=== PATIENT | female | born 1990 | race Caucasian/White ===

== ENCOUNTER 2017-04-06 15:37 | Emergency (ER) | payer BC, MEDICAID ==
[2017-04-06 16:16] VITALS: BMI 25.8
--- NOTE | 2017-04-06 17:30 | C.PDOC ---
REFERRED BY DR RJ MESA FOR HYPEREMESIS. PS WORSENING SX X 3-4 WEEKS. NO IMPROVE W REGLAN, COMPAZINE SUPPOSITORY, HERBAL ANTIEMETIC TX. PS IS HUNGRY AND WANTS TO EAT BUT IMMEDIATELY VOMITS EVEN W PO HYDRATION. DECREASED UO. NO ABD PAIN, VB, FEVER, DIARRHEA. EXAM MILD DIST NONTOXIC POOR TURGOR ABD NEG REMAINDER NEG (Iron,Carly) History Per: Patient History/Exam Limitations: no limitations Onset/Duration Of Symptoms: Days Current Symptoms Are (Timing): Still Present Severity: Moderate <Carly Perdue - Last Filed: 04/06/17 18:43> <Azalia Anna - Last Filed: 04/07/17 05:18> Time Seen by Provider: 04/06/17 17:08 Chief Complaint (Nursing): GI Problem Past Medical History Reviewed: Historical Data, Nursing Documentation, Vital Signs - Medical History PMH: No Chronic Diseases Other Surgeries: Hx of surgeries Family History: States: No Known Family Hx - Social History Hx Alcohol Use: No Hx Substance Use: No - Immunization History Hx Tetanus Toxoid Vaccination: No Hx Influenza Vaccination: Yes (2017) Hx Pneumococcal Vaccination: No <Carly Perdue - Last Filed: 04/06/17 18:43> Vital Signs: Last Vital Signs Temp 98.5 F 04/06/17 22:36 Pulse 80 04/06/17 22:36 Resp 14 04/06/17 22:36 BP 120/80 04/06/17 22:36 Pulse Ox 99 04/06/17 22:36 Review Of Systems Except As Marked, All Systems Reviewed And Found Negative. Constitutional: Negative for: Fever, Chills Gastrointestinal: Positive for: Vomiting. Negative for: Abdominal Pain, Diarrhea <Carly Perdue - Last Filed: 04/06/17 18:43> Physical Exam - Physical Exam Appears: Non-toxic, Other (mild distress) Skin: Normal Color, Warm, Other (poor turgor) Head: Atraumatic, Normacephalic Eye(s): bilateral: Normal Inspection Gastrointestinal/Abdominal: Normal Exam, Soft, No Tenderness, No Distention, No Guarding, No Rebound Neurological/Psych: Oriented x3, Normal Speech, Normal Motor, Normal Sensation <Carly Perdue - Last Filed: 04/06/17 18:43> ED Course And Treatment - Laboratory Results Result Diagrams: 04/06/17 17:55 04/06/17 17:55 O2 Sat by Pulse Oximetry: 98 (RA) Pulse Ox Interpretation: Normal <Carly Perdue - Last Filed: 04/06/17 18:43> - Laboratory Results Result Diagrams: 04/06/17 17:55 04/06/17 17:55 <Azalia Anna - Last Filed: 04/07/17 05:18> Progress - Data Reviewed Data Reviewed: Lab, Old records <Carly Perdue - Last Filed: 04/06/17 18:43> <Azalia Anna - Last Filed: 04/07/17 05:18> - Re-Evaluation Re-evaluation Note: 04/06/17 17:25 D/W DR DE LA ROSA: PT FAILED RECTAL COMPAZINE, REGLAN, HERBAL ANTIEMETICS. UNABLE TO TOLERATE PO. REQUESTING IVF, PO TRIAL POSSIBLE ADMISSION IF FAIL OR ELECTROLYTE ABN. ADVISES REGLAN, NO ZODIRK. [phone] (Carly Perdue) Medical Decision Making <Carly Perdue - Last Filed: 04/06/17 18:43> <Azalia Anna - Last Filed: 04/07/17 05:18> Medical Decision Making: Plan: --Labs --UA --IV Fluids (Carly Perdue) Disposition Counseled Patient/Family Regarding: Studies Performed, Diagnosis - Disposition Disposition Time: 19:00 <Carly Perdue - Last Filed: 04/06/17 18:43> <Azalia Anna - Last Filed: 04/07/17 05:18> - Disposition Disposition: AGAINST MEDICAL ADVICE Condition: STABLE - Clinical Impression Clinical Impression: Hyperemesis gravidarum - Scribe Statement The provider has reviewed the documentation as recorded by the Scribe <Carly Perdue - Last Filed: 04/06/17 18:43> <Azalia Anna - Last Filed: 04/07/17 05:18> - Scribe Statement Aneesh Watkins (Carly Perdue) Provider Attestation: All medical record entries made by the Scribe were at my direction and personally dictated by me. I have reviewed the chart and agree that the record accurately reflects my personal performance of the history, physical exam, medical decision making, and the department course for this patient. I have also personally directed, reviewed, and agree with the discharge instructions and disposition. (Carly Perdue) Physician Patient Turnover Patient Signed Over To: Azalia Anna Handoff Comments: SASHA HULL, DISPO <Carly Perdue - Last Filed: 04/06/17 18:43>
[2017-04-06] MEDS ORDERED: Sodium Chloride 0.9% 2,000 ML ONE (17:47)
[2017-04-06 18:03] LABS: BASO # 0.1 K/uL (0.0-0.2); BASO % 0.5 % (0.0-2.0); EOS # 0.1 K/uL (0.0-0.7); EOS % 0.7 % (0.0-4.0); HEMOGLOBIN 12.2 g/dL (11.0-16.0); LYMPH # 2.9 K/uL (1.0-4.3); LYMPH % 19.6 % (20.0-40.0); MEAN CORPUSCULAR HEMOGLOBIN 28.8 pg (27.0-31.0); MEAN CORPUSCULAR HGB CONC 33.3 g/dL (33.0-37.0); MEAN PLATELET VOLUME 8.3 fL (7.2-11.7); MONO # 0.8 K/uL (0.0-0.8); MONO % 5.3 % (0.0-10.0); NEUT % 73.9 % (50.0-75.0); RBC 4.22 Mil/uL (3.80-5.20); RED CELL DISTRIBUTION WIDTH 13.1 % (11.5-14.5); WHITE BLOOD COUNT 14.9 K/uL (4.8-10.8)
[2017-04-06 18:09] LABS: MEAN CELL VOLUME 86.7 fL (81.0-99.0)
[2017-04-06 18:20] LABS: CALCIUM 9.1 mg/dl (8.6-10.4); GFR AFRICAN-AMERICAN > 60; GFR NON-AFRICAN AMERICAN > 60
[2017-04-06 18:29] LABS: BLOOD UREA NITROGEN 7 mg/dL (7-17)
[2017-04-06 18:32] LABS: SQUAMOUS EPITHIAL 1 /hpf (0-5); URINE BACTERIA OCC (<OCC); URINE BILIRUBIN NEGATIVE (NEGATIVE); URINE BLOOD NEGATIVE (NEGATIVE); URINE CLARITY Hazy (Clear); URINE COLOR Yellow (YELLOW); URINE GLUCOSE (UA) NORMAL (Normal); URINE LEUKOCYTE ESTERASE NEG Leu/uL (Negative); URINE NITRATE NEGATIVE (NEGATIVE); URINE PROTEIN NEGATIVE (NEGATIVE); URINE UROBILINOGEN NORMAL mg/dL (0.2-1.0)
[2017-04-06] MEDS ORDERED: Dextrose 5%/0.9% NS 1,000 ML IV SCH (21:00)
--- NOTE | 2017-04-06 21:06 | CP.PCM.HP ---
History of Present Illness - History of Present Illness History of Present Illness: cc: nausea vomitting 26 yo with nausea vomitting. 7 weeks confirmed FHT. failing outpatient management with PO reglan and compazine suppositories, pepcid. unable to tolerate liquids and solids. attempt to hydrate and PO challenge in ED failed. Present on Admission - Present on Admission Any Indicators Present on Admission: No Review of Systems - Constitutional Constitutional: Weakness. absent: As Per HPI, Anorexia, Chills, Daytime Sleepiness, Excessive Sweating, Fatigue, Fever, Frequent Falls, Headache, Increased Appetite, Lethargy, Malaise, Night Sweats, Snoring, Sleep Apnea, Weight Gain, Other - EENT Eyes: absent: Blurred Vision, Floaters Nose/Mouth/Throat: As Per HPI - Breasts Breasts: absent: Nipple Discharge - Cardiovascular Cardiovascular: Palpitations. absent: Chest Pain, Orthopnea - Respiratory Respiratory: absent: Dyspnea - Gastrointestinal Gastrointestinal: As Per HPI - Genitourinary Genitourinary: absent: Change in Urinary Stream, Difficulty Urinating, Dysuria - Reproductive: Female Reproductive:Female: As Per HPI Past Patient History - Past Medical History & Family History Past Medical History?: Yes - Past Social History Smoking Status: Never Smoked - PSYCHIATRIC Hx Substance Use: No - SURGICAL HISTORY Hx Surgeries: Yes (SEE COMMENT) Hx Section: Yes (x1(2010)) Meds Allergies/Adverse Reactions: Allergies Allergy/AdvReac Type Severity Reaction Status Date / Time No Known Allergies Allergy Verified 04/06/17 16:14 Physical Exam - Constitutional Appears: Non-toxic, No Acute Distress - Head Exam Head Exam: ATRAUMATIC, NORMOCEPHALIC - Eye Exam Eye Exam: PERRL - Cardiovascular Exam Cardiovascular Exam: REGULAR RHYTHM - GI/Abdominal Exam GI & Abdominal Exam: Normal Bowel Sounds. absent: Guarding, Tenderness - Back Exam Back exam: NORMAL INSPECTION Results - Vital Signs Recent Vital Signs: Last Vital Signs Temp 98.7 F 04/06/17 16:16 Pulse 90 04/06/17 16:16 Resp 18 04/06/17 16:16 BP 132/88 04/06/17 16:16 Pulse Ox 98 04/06/17 18:44 - Labs Result Diagrams: 04/06/17 17:55 04/06/17 17:55 Labs: Laboratory Results - last 24 hr 04/06/17 04/06/17 04/06/17 17:55 17:55 17:55 WBC 14.9 H RBC 4.22 Hgb 12.2 Hct 36.6 MCV 86.7 D MCH 28.8 MCHC 33.3 RDW 13.1 Plt Count 320 MPV 8.3 Neut % (Auto) 73.9 Lymph % (Auto) 19.6 L [place] % (Auto) 5.3 Eos % (Auto) 0.7 Baso % (Auto) 0.5 Neut # (Auto) 11.0 H Lymph # (Auto) 2.9 [place] # (Auto) 0.8 Eos # (Auto) 0.1 Baso # (Auto) 0.1 Sodium 132 Potassium 4.3 Chloride 98 Carbon Dioxide 24 Anion Gap 14 BUN 7 Creatinine 0.6 L Est GFR ( Amer) > 60 Est GFR (Non-Af Amer) > 60 Random Glucose 82 Calcium 9.1 Beta HCG, Quant 07266.00 Urine Color Yellow Urine Clarity Hazy Urine pH 6.0 Ur Specific [place] 1.020 Urine Protein Negative Urine Glucose (UA) Normal Urine Ketones Negative Urine Blood Negative Urine Nitrate Negative Urine Bilirubin Negative Urine Urobilinogen Normal Ur Leukocyte Esterase Neg Urine WBC (Auto) 1 Urine RBC (Auto) < 1 Ur Squamous Epith Cells 1 Urine Bacteria Occ H Assessment & Plan (1) Hyperemesis gravidarum Status: Acute - Assessment and Plan (Free Text) Plan: see orders, ADAT, iv reglan/pepcid scheduled, ivf ambulation as tolerated d/c when able to tolerate oral intake and on oral medications
[2017-04-06 22:37] VITALS: BP 120/80; PULSE 80; RESP 14; TEMP 98.5; O2SAT 99
== END 2017-04-06 22:06 | disposition left against medical advice (07) ==
LOC: C.ER 15:37 → UNDOADMOB 19:55 → C.9E 19:55 → C.3T 21:08 → C.9E 21:08 → C.3T 21:31 → C.9E 21:31 → UNDODISOB 22:06 → C.ER 22:06
DX: O21.0 Mild hyperemesis gravidarum (principal); Z3A.01 Less than 8 weeks gestation of pregnancy
CPT/HCPCS: 80048; 81001; 84702; 85025; 96374; 99283; J2765; J7040

== ENCOUNTER 2017-04-07 10:22 | Inpatient (IN) | payer BC ==
[2017-04-07 11:11] VITALS: BMI 26.6
[2017-04-07] MEDS ORDERED: Dextrose 5%/0.9% NS 1,000 ML IV ONE (13:15)
--- NOTE | 2017-04-07 18:49 | CP.PCM.HP ---
History of Present Illness - History of Present Illness History of Present Illness: n/v of 26 yo with nausea vomitting. 7 weeks confirmed FHT. failing outpatient management with PO reglan and compazine suppositories, pepcid. unable to tolerate liquids and solids. attempt to hydrate and PO challenge in ED failed. Present on Admission - Present on Admission Any Indicators Present on Admission: No Review of Systems - Constitutional Constitutional: absent: As Per HPI, Anorexia, Chills, Daytime Sleepiness, Excessive Sweating, Fatigue, Fever, Frequent Falls, Headache, Increased Appetite , Lethargy, Malaise, Night Sweats, Snoring, Sleep Apnea, Weakness, Other - EENT Eyes: absent: As Per HPI, Blind Spots, Blurred Vision, Change in Vision, Decreased Night Vision, Diplopia, Discharge, Dry Eye, Exophthalmos, Floaters, Irritation, Itchy Eyes, Loss of Peripheral Vision, Pain, Photophobia, Requires Corrective Lenses, Sees Flashes, Spots in Vision, Tunnel Vision, Other Visual Disturbances, Loss of Vision, Other Ears: absent: As Per HPI, Decreased Hearing, Ear Discharge, Ear Pain, Tinnitus, Abnormal Hearing, Disequilibrium, Dizziness, Other Nose/Mouth/Throat: absent: As Per HPI, Epistaxis, Nasal Congestion, Nasal Discharge, Nasal Obstruction, Nasal Trauma, Nose Pain, Post Nasal Drip, Sinus Pain, Sinus Pressure, Bleeding Gums, Change in Voice, Dental Pain, Dry Mouth, Dysphagia, Halitosis, Hoarsness, Lip Swelling, Mouth Lesions, Mouth Pain, Odynophagia, Sore Throat, Throat Swelling, Tongue Swelling, Facial Pain, Neck Pain, Neck Mass, Other - Cardiovascular Cardiovascular: absent: As Per HPI, Acrocyanosis, Chest Pain, Chest Pain at Rest , Chest Pain with Activity, Claudication, Diaphoresis, Dyspnea, Dyspnea on Exertion, Edema, Irregular Heart Rhythm, Pain Radiating to Arm/Neck/Jaw, Leg Edema, Leg Ulcers, Lightheadedness, Orthopnea, Palpitations, Paroxysmal Nocturnal Dyspnea, Pedal Edema, Radiating Pain, Rapid Heart Rate, Slow Heart Rate, Syncope, Other - Respiratory Respiratory: absent: As Per HPI, Cough, Dyspnea, Hemoptysis, Dyspnea on Exertion , Wheezing, Snoring, Stridor, Pain on Inspiration, Chest Congestion, Excessive Mucous Production, Change in Mucous Color, Pain with Coughing, Other - Gastrointestinal Gastrointestinal: As Per HPI - Reproductive: Female Reproductive:Female: As Per HPI Past Patient History - Past Medical History & Family History Past Medical History?: Yes - Past Social History Smoking Status: Never Smoked - PSYCHIATRIC Hx Substance Use: No - SURGICAL HISTORY Hx Surgeries: Yes (SEE COMMENT) Hx Section: Yes (x1(2010)) Meds Allergies/Adverse Reactions: Allergies Allergy/AdvReac Type Severity Reaction Status Date / Time No Known Allergies Allergy Verified 04/06/17 16:14 Physical Exam - Constitutional Appears: Well, Non-toxic, No Acute Distress - Head Exam Head Exam: ATRAUMATIC, NORMOCEPHALIC - Eye Exam Pupil Exam: PERRL - Neck Exam Neck exam: Positive for: Normal Inspection - Respiratory Exam Respiratory Exam: NORMAL BREATHING PATTERN - Cardiovascular Exam Cardiovascular Exam: REGULAR RHYTHM - GI/Abdominal Exam GI & Abdominal Exam: Normal Bowel Sounds, Soft - Extremities Exam Extremities exam: Positive for: normal inspection Results - Labs Labs: please review previous day's labs Assessment & Plan - Assessment and Plan (Free Text) Assessment: hyperemesis gravidarum Plan: ADAT to soft bland diet ambulate as tolerated IVF D5NS @100cc/hr iv reglan scheduled iv pepcid scheduled d/c when tolerating more PO disposition home with home care alaready arranged
[2017-04-07] MEDS: Folic Acid 1 MG, Thiamine 100 MG, Multivitamin (MVI) 10 ML in Dextrose 5% In Water 1,00... IV SCH (21:43)
[2017-04-08 07:38] LABS: BLOOD UREA NITROGEN 6 mg/dL (7-17); CALCIUM 9.2 mg/dl (8.6-10.4); GFR AFRICAN-AMERICAN > 60; GFR NON-AFRICAN AMERICAN > 60
[2017-04-08] MEDS: Folic Acid 1 MG, Thiamine 100 MG, Multivitamin (MVI) 10 ML in Dextrose 5% In Water 1,00... IV SCH (17:55)
[2017-04-09 08:25] VITALS: BP 112/77; PULSE 84; TEMP 98.3
[2017-04-09 08:34] VITALS: RESP 20; O2SAT 97
[2017-04-09] MEDS: Folic Acid 1 MG, Thiamine 100 MG, Multivitamin (MVI) 10 ML in Dextrose 5% In Water 1,00... IV SCH (13:17)
[2017-04-09] MEDS ORDERED: Influenza Vaccine 60 mcg/0.5 mL SYR (4YR UP) IM ONE (15:29)
--- NOTE | 2017-04-09 16:14 | CP.PCM.PN ---
Subjective - Date & Time of Evaluation Date of Evaluation: 04/09/17 Time of Evaluation: 16:18 - Subjective Subjective: 26 yo HD# 2 Hyperemesis Gravidarum S: Patient tolerating Objective - Vital Signs/Intake and Output Vital Signs (last 24 hours): Temp Pulse Resp BP Pulse Ox 98.3 F 84 20 112/77 97 04/09/17 08:32 04/09/17 08:32 04/09/17 08:32 04/09/17 08:32 04/09/17 08:32 Intake and Output: 04/09/17 04/09/17 06:59 18:59 Intake Total 504 Balance 504 - Medications Medications: Current Medications Famotidine (Pepcid) 20 mg IVP Q12H [facility] Last Admin: 04/09/17 14:44 Dose: 20 mg Folic Acid 1 mg/ Thiamine HCl 100 mg/ Multivitamins/Vitamin C 10 ml/ Dextrose 1 ,011.2 mls @ 42 mls/hr IV .Q24H [facility] Last Admin: 04/09/17 13:17 Dose: 42 mls/hr Metoclopramide HCl (Reglan) 10 mg IVP Q8 [facility] Last Admin: 04/09/17 13:17 Dose: 10 mg - Labs Labs: 04/08/17 07:02 - Constitutional Appears: Well - Head Exam Head Exam: ATRAUMATIC, NORMAL INSPECTION, NORMOCEPHALIC - Eye Exam Eye Exam: EOMI, Normal appearance, PERRL Pupil Exam: NORMAL ACCOMODATION, PERRL - ENT Exam ENT Exam: Mucous Membranes Moist, Normal Exam - Neck Exam Neck Exam: Full ROM, Normal Inspection. absent: Lymphadenopathy - Respiratory Exam Respiratory Exam: Clear to Ausculation Bilateral, NORMAL BREATHING PATTERN - Cardiovascular Exam Cardiovascular Exam: REGULAR RHYTHM, +S1, +S2. absent: Murmur - GI/Abdominal Exam GI & Abdominal Exam: Soft, Normal Bowel Sounds. absent: Tenderness - Rectal Exam Rectal Exam: NORMAL INSPECTION - Exam Exam: Circumcision, NORMAL INSPECTION External exam: NORMAL EXTERNAL EXAM Speculum exam: NORMAL SPECULUM EXAM Bimanual exam: NORMAL BIMANUAL EXAM - Extremities Exam Extremities Exam: Full ROM, Normal Capillary Refill, Normal Inspection. absent : Joint Swelling, Pedal Edema - Back Exam Back Exam: NORMAL INSPECTION - Neurological Exam Neurological Exam: Alert, Awake, CN II-XII Intact, Normal Gait, Oriented x3 - Psychiatric Exam Psychiatric exam: Normal Affect, Normal Mood - Skin Skin Exam: Dry, Intact, Normal Color, Warm Assessment and Plan (1) Hyperemesis gravidarum Status: Acute (2) Nausea and vomiting during Status: Acute - Assessment and Plan (Free Text) Assessment: 26 yo S/p Hyperemesis Gravidarum Stable Discharge Plan: Discharge Home
== END 2017-04-09 16:12 | disposition home or self-care (01) | DRG 781 ==
LOC: C.4M 10:22
PROVIDERS: ADMIT Obstetrics & Gynecology; ATTEND Obstetrics & Gynecology
DX: O21.0 Mild hyperemesis gravidarum (principal); Z3A.01 Less than 8 weeks gestation of pregnancy

== ENCOUNTER 2017-10-24 16:20 | Emergency (ER) | payer BC ==
[2017-10-24] MEDS ORDERED: Lactated Ringer's 1,000 ML IV ONE (16:52)
[2017-10-24 17:50] LABS: BASO % 0.2 % (0.0-2.0); EOS # 0.1 K/uL (0.0-0.7); EOS % 0.6 % (0.0-4.0); HEMOGLOBIN 10.5 g/dL (11.0-16.0); LYMPH # 1.6 K/uL (1.0-4.3); LYMPH % 13.8 % (20.0-40.0); MEAN CELL VOLUME 83.6 fL (81.0-99.0); MEAN CORPUSCULAR HEMOGLOBIN 28.2 pg (27.0-31.0); MEAN CORPUSCULAR HGB CONC 33.7 g/dL (33.0-37.0); MEAN PLATELET VOLUME 9.7 fL (7.2-11.7); MONO # 0.5 K/uL (0.0-0.8); MONO % 4.3 % (0.0-10.0); NEUT # 9.5 K/uL (1.8-7.0); NEUT % 81.1 % (50.0-75.0); RBC 3.73 Mil/uL (3.80-5.20); RED CELL DISTRIBUTION WIDTH 13.8 % (11.5-14.5); WHITE BLOOD COUNT 11.7 K/uL (4.8-10.8)
[2017-10-24 17:59] LABS: PROTHROMBIN TIME 11.2 SECONDS (9.7-12.2)
[2017-10-24 18:04] LABS: ALB/GLOB RATIO 1.2 (1.0-2.1); ALBUMIN 3.4 g/dL (3.5-5.0); ALT/SGPT 34 U/L (9-52); AST/SGOT 28 U/L (14-36); BLOOD UREA NITROGEN 10 mg/dL (7-17); CALCIUM 9.6 mg/dl (8.6-10.4); GFR NON-AFRICAN AMERICAN > 60; URIC ACID 4.9 mg/dL (2.2-7.5)
[2017-10-24 18:10] LABS: SQUAMOUS EPITHIAL 4 /hpf (0-5); URINE BACTERIA RARE (<OCC); URINE BILIRUBIN NEGATIVE (NEGATIVE); URINE BLOOD NEGATIVE (NEGATIVE); URINE CLARITY Hazy (Clear); URINE COLOR Yellow (YELLOW); URINE GLUCOSE (UA) NORMAL (Normal); URINE HYALINE CAST 0-2 /lpf (0-2); URINE LEUKOCYTE ESTERASE NEG Leu/uL (Negative); URINE PROTEIN NEGATIVE (NEGATIVE); URINE UROBILINOGEN NORMAL mg/dL (0.2-1.0)
--- NOTE | 2017-10-24 19:33 | OBHP ---
Datetime: 10/24/2017 16:41 IP Adm Impression: , intrauterine IP Adm Impression Other: Previuos C/S IP Admit Plan: Discharge home Admit Comment, IP Provider: 26 y.o. , LMP 02/08/17, revised PARKER 11/22/17, EGA 35w 6d referred by PMD for evaluation of elevated BPs in the office earlier today. Also was told today to be anemic. (+) H/O BRUNNER 10/22 and 10/23, none now; reports occ dizziness. Also c/o epigastric pain - onset a few day s ago. (+) vomiting 2 nights in a row: 10/22 and 10/23. (+) swelling to feet - beginning third trimestre. (+) AFM; denies LOF, VB, Ctx; reports pelvic pressure. care: DR. Mauricio: no iss ues P Ob: 2011, C/S, 37 weeks, female, 6lb, [facility]. 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 No h/o STI/ovarian cysts/myoma/ abnormal Pap PMH: pyelonephritis PSH: C/S NKDA Meds: PNV Soc Hx: denies tobacco, illicit drug or EtOH use. Engaged. 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 No [facility] h/o cancer Assessment: 26 y.o. elevated BP - gestational HTN/ R/O pre-eclampsia. Category 1 tracing. Clinic ally stable. Plan: 1) pre-eclamptic labs 2)IVFs 3) Observe Addendum: BPs 133/90/ 128/91; ... 126/81, 115/68, 123/81 - S/P IVFs: contractions have resolved. - all labs are negative: protein negative. - All the above DW Dr. Mauricio: can discharge patient home Plan: 1) Discharge home 2) Complete 24 hour urine collection (started approx 1700 hours): drop off 9/5/18 3) Reviewed S/S PTL/ pre-eclampsia 4) F/U Dr. Mauricio, [place] 10/24/17 Pelvic Type - PN: Adequate Extremities - PN: Normal Abdomen - PN: Normal Back - PN: Normal Breast - PN: Not Done Lungs - PN: Normal Heart - PN: Normal Thyroid - PN: Not Done Neurologic - PN: Normal HEENT - PN: Normal General - PN: Normal Presentation-Admit: Vertex FHR - Baseline A Provider: 145 Contraction Comments Provider: irregular Comments, ACOG Physical Exam: Abdomen: Gravid. Soft. Non tender in all quadrants. Fundal height 35cm . Healed Pfannenstiel scar. Extremities: no calf tenderness, cyanosis or edema All other systems reviewed and are negative Gestation - Est Wks by US: 35w 6d EGA AdmitDate IP: 35.6 Vital Signs Provider: Reviewed; Within Normal Limits IP Chief Complaint: Signs/Symptoms Gestational HTN NICHD Variability Prov Fetus A: Moderate 6-25bpm NICHD Accel Fetus A IP Provider: [id number] FHR Category Provider Fetus A: Category I NICHD Decel Fetus A IP Provider: None Dilatation, Provider: 0 Effacement, Provider: 30 Station, Provider: -4 Genitourinary Exam: Normal DTRs - PN: Normal
[2017-10-25 01:27] VITALS: BP 128/92; PULSE 88; RESP 18; TEMP 97.2; O2SAT 99
== END 2017-10-24 19:03 | disposition home or self-care (01) ==
LOC: C.EROB 16:20
DX: R03.0 Elevated blood-pressure reading, without diagnosis of hypertension (principal); O16.3 Unspecified maternal hypertension, third trimester; Z3A.35 35 weeks gestation of pregnancy
CPT/HCPCS: 80053; 81001; 83615; 84550; 85025; 85384; 85610; 85730; 86850; 86860; 86870; 86900; 99283; J7120